=== PATIENT | female | born 1950 | race Caucasian/White ===

== ENCOUNTER → 2018-01-05 | Outpatient (CLI) | payer MEDICARE, OTHER ==
--- NOTE | 2018-01-05 14:27 | CT ---
Procedure: CT CHEST WITH IV CONTRAST Exam Date: 01/05/2018 Ordering Provider: JERRY MEJIA Clinical Indication: DYSPNEA, ABNORMAL CXR Comparison: 01/23/2015 and 11/15/2012 TECHNIQUE: 5mm images were taken through the chest following the administration of nonionic intravenous contrast material. Coronal and sagittal reformatted images were generated. This exam was performed according to our departmental dose optimization program which includes use of automated exposure control, adjustment of the mA and/or kV according to patient size and/or use of iterative reconstruction technique. FINDINGS: Lines/Tubes/Devices: None Lungs and large airways: No focal lung consolidation. Subsegmental atelectasis/scarring in the lingula, right middle and left lower lobes. 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 Pleura: No pleural effusion. No pneumothorax. Mediastinum and jonn: No lymphadenopathy Heart and great vessels: The heart is not enlarged. No pericardial effusion. No aortic aneurysm. Aortic calcification. Chest wall, lower neck, axillae: No axillary lymphadenopathy. Upper abdomen: Small hiatal hernia. 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 Bones: Nonacute IMPRESSION: 1. Stable 4 mm nodule in the left upper lobe. 2. 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 3. 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 Follow-up in 1-2 years is recommended. Electronically signed by: Jerel Yao MD 01/05/2018 2:25 PM CDT
== END ==
LOC: CT 09:26
PROVIDERS: ATTEND General Practice
DX: R06.02 Shortness of breath (principal); I78.0 Hereditary hemorrhagic telangiectasia; R91.8 Other nonspecific abnormal finding of lung field; I72.2 Aneurysm of renal artery